=== PATIENT | female | born 1980 | race American Indian/Alaskan Native ===

== ENCOUNTER 2016-09-29 09:36 | Emergency (ER) | payer BC ==
[2016-09-29 09:50] VITALS: BP 121/78
[2016-09-29 10:43] LABS: Bilirubin,Urine NEG (Negative); Blood,Urine NEG (Negative); Ketones,Urine NEG (Negative); Leukocyte Esterase,Urine NEG (Negative); Nitrite,Urine NEG (Negative); Protein,Urine <15 mg/dL mg/dL (Negative); Urobilinogen,Urine < 2.0 mg/dL (<2.0)
[2016-09-29] MEDS ORDERED: FLEXERIL PO ONE (11:16)
[2016-09-29] MEDS ORDERED: NORCO 5/325 PO ONE (11:16)
--- NOTE | 2016-09-29 11:16 | Emergency Department Report ---
ED Back Pain/Injury HPI - General Chief Complaint: Urogenital-Female Stated Complaint: ABD/BACK PAIN/HEADACHE Time Seen by Provider: 09/29/16 11:09 Source: patient, family Mode of arrival: Ambulatory Limitations: No Limitations - History of Present Illness Initial Comments: Patient states that she had lower back pain and flank pain the last month. She states that she had increased urination. Denies any burning or frequency. Denies fevers or chills. Denies any abdominal pain. She is also complaining of pain in her left ear. Pain is 8 out of 10 right lower back on both sides. Denies taking any medication for pain. Pain is achy. She says she works for [employer] and she has a forklift and left heavy boxes. Denies any nausea or vomiting. Denies any history of diabetes or any family history of diabetes. He has been treated in the past for back pain. Denies Any increased thirst. Denies Any loss of bowel or bladder function or numbness or tingling in extremities. MD Complaint: back pain Onset/Timin -: month(s) Similar Symptoms Previously: Yes Place: home Radiation: none Severity: severe Severity scale (0 -10): 8 Quality: aching Consistency: intermittent Improves With: immobilization Worsens With: movement, walking Context: unknown Associated Symptoms: denies: confusion, weakness, chest pain, numbness, difficulty walking, cough, difficulty urinating, diaphoresis, incontinence, fever/chills, constipation, headaches, abdominal pain, loss of appetite, malaise , nausea/vomiting, rash, seizure, shortness of breath, syncope Treatments Prior to Arrival: other (none) - Related Data Previous Rx's Medication Instructions Recorded Last Taken Type Albuterol Sulfate [Ventolin HFA] 2 puff IH Q4H PRN #1 hfa.aer.ad 02/08/13 Rx Cyclobenzaprine HCl [FLEXERIL] 10 mg PO TID #12 tablet 03/19/13 Unknown Rx traMADol [Ultram] 50 mg PO Q4HR PRN #15 tablet 03/19/13 Unknown Rx Cyclobenzaprine [Flexeril] 10 mg PO TID PRN #15 tablet 09/29/16 Unknown Rx Ibuprofen [Motrin] 600 mg PO Q8H PRN #15 tablet 06/18/17 Unknown Rx Allergies Allergy/AdvReac Type Severity Reaction Status Date / Time No Known Allergies Allergy Unverified 02/08/13 12:13 ED Review of Systems ROS: Stated complaint: ABD/BACK PAIN/HEADACHE Other details as noted in HPI Comment: All other systems reviewed and negative Constitutional: denies: chills, fever ENT: denies: ear pain, throat pain, congestion Respiratory: no symptoms reported Cardiovascular: denies: chest pain, palpitations, edema, syncope Gastrointestinal: denies: abdominal pain, nausea, vomiting, diarrhea Genitourinary: frequency. denies: urgency, dysuria, hematuria, discharge Musculoskeletal: back pain. denies: joint swelling, arthralgia, myalgia Skin: denies: rash Neurological: denies: headache, weakness, numbness, paresthesias, confusion, abnormal gait, vertigo ED Past Medical Hx - Past Medical History Previous Medical History?: Yes Hx Asthma: Yes - Surgical History Past Surgical History?: Yes Additional Surgical History: ankle surgery - Family History Family history: hypertension - Social History Smoking Status: Current Some Day Smoker Substance Use Type: Alcohol - Medications Home Medications: Home Medications Medication Instructions Recorded Confirmed Last Taken Type Albuterol Sulfate [Ventolin HFA] 2 puff IH Q4H PRN #1 hfa.aer.ad 02/08/1303/09/13 Rx Cyclobenzaprine HCl [FLEXERIL] 10 mg PO TID #12 tablet 03/19/13 Unknown Rx traMADol [Ultram] 50 mg PO Q4HR PRN #15 tablet 03/19/13 Unknown Rx Cyclobenzaprine [Flexeril] 10 mg PO TID PRN #15 tablet 09/29/16 Unknown Rx Ibuprofen [Motrin] 600 mg PO Q8H PRN #15 tablet 09/29/16 Unknown Rx ED Physical Exam - General Limitations: No Limitations General appearance: alert, in no apparent distress - Head Head exam: Present: atraumatic, normocephalic, normal inspection - Eye Eye exam: Present: normal appearance, PERRL, EOMI Pupils: Present: normal accommodation - ENT ENT exam: Present: normal exam, normal orophraynx, mucous membranes moist, TM's normal bilaterally, normal external ear exam - Neck Neck exam: Present: normal inspection, full ROM. Absent: tenderness, meningismus, lymphadenopathy - Respiratory Respiratory exam: Present: normal lung sounds bilaterally. Absent: respiratory distress, wheezes, rales, rhonchi, stridor, chest wall tenderness - Cardiovascular Cardiovascular Exam: Present: regular rate, normal rhythm, normal heart sounds - GI/Abdominal GI/Abdominal exam: Present: soft, normal bowel sounds. Absent: distended, tenderness, guarding, rebound, rigid - Extremities Exam Extremities exam: Present: normal inspection, full ROM, normal capillary refill. Absent: tenderness, pedal edema, joint swelling, calf tenderness - Back Exam Back exam: Present: normal inspection, full ROM. Absent: tenderness, CVA tenderness (R), CVA tenderness (L), muscle spasm, paraspinal tenderness, vertebral tenderness, rash noted - Expanded Back Exam Expanded Back exam: Absent: saddle anesthesia Back exam: Negative Straight Leg Raising: Left, Right - Neurological Exam Neurological exam: Present: alert, oriented X3, normal gait, reflexes normal. Absent: motor sensory deficit - Expanded Neurological Exam Expanded Neurological exam: Absent: innattentive, memory loss-remote event, memory loss- recent event, ataxia, receptive aphasia, expressive aphasia, total aphasia, tremor Patient oriented to: Present: person, place, time Speech: Present: fluid speech Cranial nerves: EOM's Intact: Normal, Gag Reflex: Normal, Nystagmus: Normal, Facial Sensation: Normal Cerebellar function: Romberg: Normal Upper motor neuron: Pronator Drift: Normal, Sensory Extinction: Normal Sensory exam: Upper Extremity Light Touch: Normal, Upper Extremity Temperature: Normal, UE 2 Point Discrimination: Normal, Lower Extremity Light Touch: Normal, Lower Extremity Temperature: Normal, LE 2 Point Discrimination: Normal Motor strength exam: RUE: 5, LUE: 5, RLE: 5, LLE: 5 DTR: bicep (R): 2+, bicep (L): 2+, tricep (R): 2+, tricep (L): 2+, knee (R): 2+ , knee (L): 2+, ankle (R): 2+, ankle (L): 2+ Best Eye Response (Mayo): (4) open spontaneously Best Motor Response (Wallis): (6) obeys commands Best Verbal Response (Wallis): (5) oriented Wallis Total: 15 - Psychiatric Psychiatric exam: Present: normal affect, normal mood - Skin Skin exam: Present: warm, dry, intact, normal color. Absent: rash ED Course Vital Signs 09/29/16 09:47 Temperature 98.5 F Pulse Rate 75 Respiratory 16 Rate Blood Pressure 121/78 O2 Sat by Pulse 100 Oximetry - Reevaluation(s) Reevaluation #1: 09/29/16 11:42 Patient given Percocet 5/325 2 tablets and Flexeril 10 mg emergency room for back pain ED Medical Decision Making - Lab Data Lab Results 09/29/16 Range/Units 10:18 Urine Color Yellow (Yellow) Urine Turbidity Clear (Clear) Urine pH 5.0 (5.0-7.0) Ur Specific [place] 1.017 (1.003-1.030) Urine Protein <15 mg/dl (Negative) mg/dL Urine Glucose (UA) Neg (Negative) mg/dL Urine Ketones Neg (Negative) mg/dL Urine Blood Neg (Negative) Urine Nitrite Neg (Negative) Urine Bilirubin Neg (Negative) Urine Urobilinogen < 2.0 (<2.0) mg/dL Ur Leukocyte Esterase Neg (Negative) Urine WBC (Auto) 1.0 (0.0-6.0) /HPF Urine RBC (Auto) 2.0 (0.0-6.0) /HPF U Epithel Cells (Auto) 2.0 (0-13.0) /HPF Urine HCG, Qual Negative (Negative) - Medical Decision Making ED Course: Patient was low back pain. She has no CVA tenderness and no vertebral tenderness Back paraspinal tenderness. Patient lifts heavy objects at work so I discussed with her that her urine was normal and she is not but she needs to take a couple days after rest. I also discussed with her that she will need to follow up with orthopedic doctor if she continues to have back pain. She was given Percocet 5/325 2 tablets and Flexeril 10 mg emergency room for pain,'. Discharged with S/O prescription for Flexeril and Motrin. Critical care attestation.: If time is entered above; I have spent that time in minutes in the direct care of this critically ill patient, excluding procedure time. ED Disposition Clinical Impression: Lower back pain Qualifiers: Chronicity: acute Back pain laterality: bilateral Sciatica presence: without sciatica Qualified Code(s): M54.5 - Low back pain Lumbar back sprain Qualifiers: Encounter type: initial encounter Qualified Code(s): S33.5XXA - Sprain of ligaments of lumbar spine, initial encounter Disposition: TO HOME OR SELFCARE Is pt being admited?: No Does the pt Need Aspirin: No Condition: Stable Instructions: Low Back Strain (ED), Core Strengthening Exercises (GEN) Additional Instructions: Please do not take Flexeril while driving or operating heavy machinery as medication causes drowsiness Follow-up with orthopedic doctor if he continues to have back pain. Prescriptions: Cyclobenzaprine [Flexeril] 10 mg PO TID PRN #15 tablet PRN Reason: Muscle Spasm Ibuprofen [Motrin] 600 mg PO Q8H PRN #15 tablet PRN Reason: Pain Referrals: PRIMARY CARE, [Primary Care Provider] - 3-5 Days CRYS SERVIN MD [Staff Physician] - 3-5 Days Forms: Work/School Release Form(ED)
== END 2016-09-29 12:00 | disposition home or self-care (01) ==
LOC: ED 09:36
DX: S33.5XXA Sprain of ligaments of lumbar spine, initial encounter (principal); I10 Essential (primary) hypertension; F17.210 Nicotine dependence, cigarettes, uncomplicated; J45.909 Unspecified asthma, uncomplicated; Z98.890 Other specified postprocedural states; X50.9XXA Other and unspecified overexertion or strenuous movements or postures, initial encounter; Y93.9 Activity, unspecified; Y92.89 Other specified places as the place of occurrence of the external cause; Y99.8 Other external cause status
CPT/HCPCS: 81001; 81025; 99283

== ENCOUNTER 2017-05-03 09:44 | Emergency (ER) | payer BC ==
--- NOTE | 2017-05-03 11:38 | XRay Report ---
ROUTINE CHEST, TWO VIEWS: HISTORY: Left chest pain. The trachea, heart, mediastinal contour, lung rich and bony thorax are unremarkable. IMPRESSION: Unremarkable chest x-ray.
[2017-05-03 11:39] LABS: BUN/Creatinine Ratio 16; Blood Urea Nitrogen 11 mg/dL (7-17); Calcium 9.2 mg/dL (8.4-10.2); Hemolysis Index 5
[2017-05-03 11:47] LABS: Basophils % (Auto) 0.4 % (0.0-1.8); Eosinophils % (Auto) 0.8 % (0.0-4.3); Hematocrit 38.4 % (30.3-42.9); Hemoglobin 12.6 gm/dl (10.1-14.3); Lymphocytes # (Auto) 1.6 K/mm3 (1.2-5.4); Lymphocytes % (Auto) 30.2 % (13.4-35.0); Mean Corpuscular HGB Conc 33 % (30-34); Mean Corpuscular Hemoglobin 28 pg (28-32); Mean Corpuscular Volume 84 fl (79-97); Monocytes # (Auto) 0.5 K/mm3 (0.0-0.8); Platelet Count 307 K/mm3 (140-440); Red Blood Count 4.57 M/mm3 (3.65-5.03); Red Cell Distribution Width 17.7 % (13.2-15.2)
[2017-05-03 18:53] VITALS: BP 120/87
[2017-05-03] MEDS ORDERED: MORPHINE IV ONE (20:10)
--- NOTE | 2017-05-03 20:12 | Emergency Department Report ---
ED Chest Pain HPI - General Chief Complaint: Headache Stated Complaint: FRITZ/CP Time Seen by Provider: 05/03/17 20:01 Source: patient Mode of arrival: Ambulatory Limitations: No Limitations - History of Present Illness Initial Comments: This is a 36-year-old female presents to the emergency department from home, driven in by her brother, with complaint of pain to the left side of the chest below the breast that radiates around her side into the back. This woke her from sleep at about 3 AM and is improved but still present. She did not take anything for her symptoms prior to presentation. She denies any shortness of breath, fever, nausea, vomiting or diaphoresis. Patient also complains of a generalized headache that has resolved since presentation. She denies any visual change, slurred speech or any neurological deficits. She has a past medical history of asthma. She is a occasional tobacco smoker. She denies any illicit drug use or alcohol abuse. She does not have a primary care physician. She denies any family history of early cardiac events or . No recent travel or sick contacts at home. Severity scale (0 -10): 9 - Related Data Previous Rx's Medication Instructions Recorded Last Taken Type Albuterol Sulfate [Ventolin HFA] 2 puff IH Q4H PRN #1 hfa.aer.ad 02/08/13 Rx Cyclobenzaprine HCl [FLEXERIL] 10 mg PO TID #12 tablet 03/19/13 Unknown Rx traMADol [Ultram] 50 mg PO Q4HR PRN #15 tablet 03/19/13 Unknown Rx Cyclobenzaprine [Flexeril] 10 mg PO TID PRN #15 tablet 09/29/16 Unknown Rx Ibuprofen [Motrin] 600 mg PO Q8H PRN #15 tablet 09/29/16 Unknown Rx Allergies Allergy/AdvReac Type Severity Reaction Status Date / Time No Known Allergies Allergy Verified 05/03/17 21:14 Heart Score - HEART Score History: Slightly suspicious EKG: Normal Age: < 45 Risk factors: 1-2 risk factors Troponin: < normal limit HEART Score: 1 - Critical Actions Critical Actions: 0-3 pts:0.9-1.7%risk of adverse cardiac event.Candidate for discharge ED Review of Systems ROS: Stated complaint: FRITZ/CP Other details as noted in HPI Comment: All other systems reviewed and negative Constitutional: denies: chills, fever Eyes: denies: eye pain, eye discharge, vision change ENT: denies: ear pain, throat pain Respiratory: denies: cough, shortness of breath, wheezing Cardiovascular: chest pain. denies: palpitations Gastrointestinal: denies: abdominal pain, nausea, diarrhea Genitourinary: denies: urgency, dysuria, discharge Musculoskeletal: back pain. denies: joint swelling Skin: denies: rash, lesions Neurological: headache. denies: numbness ED Past Medical Hx - Past Medical History Previous Medical History?: Yes Hx Asthma: Yes - Surgical History Past Surgical History?: Yes Additional Surgical History: ankle surgery - Social History Smoking Status: Former Smoker Substance Use Type: Alcohol, Marijuana, Non Opiate Pain - Medications Home Medications: Home Medications Medication Instructions Recorded Confirmed Last Taken Type Albuterol Sulfate [Ventolin HFA] 2 puff IH Q4H PRN #1 hfa.aer.ad 02/08/1303/09/13 Rx Cyclobenzaprine HCl [FLEXERIL] 10 mg PO TID #12 tablet 03/19/13 Unknown Rx traMADol [Ultram] 50 mg PO Q4HR PRN #15 tablet 03/19/13 Unknown Rx Cyclobenzaprine [Flexeril] 10 mg PO TID PRN #15 tablet 09/29/16 Unknown Rx Ibuprofen [Motrin] 600 mg PO Q8H PRN #15 tablet 09/29/16 Unknown Rx ED Physical Exam - General Limitations: No Limitations - Other Other exam information: GENERAL: The patient is well-developed well-nourished. HENT: Normocephalic. Atraumatic. Patient has moist mucous membranes. EYES: Extraocular motions are intact. Pupils equal reactive to light bilaterally. No nystagmus. NECK: Supple. Trachea is midline. CHEST/LUNGS: Clear to auscultation. There is no respiratory distress noted. HEART/CARDIOVASCULAR: Regular. There is no tachycardia. There is no murmur. ABDOMEN: Abdomen is soft, nontender. Patient has normal bowel sounds. There is no abdominal distention. SKIN: Skin is warm and dry. NEURO: The patient is awake, alert, and oriented. The patient is cooperative. The patient has no focal neurologic deficits. The patient has normal speech. Cranial nerves II through XII grossly intact. MUSCULOSKELETAL: There is no tenderness or deformity. There is no limitation range of motion. There is no evidence of acute injury. ED Course Vital Signs 05/03/17 05/03/17 05/03/17 10:55 14:14 17:55 Temperature 98.1 F 98.2 F Pulse Rate 70 70 73 Respiratory 16 16 14 Rate Blood Pressure 111/63 Blood Pressure 118/57 122/87 [Right] O2 Sat by Pulse 100 100 100 Oximetry 05/03/17 05/03/17 18:43 18:54 Temperature 98.2 F Pulse Rate 67 Respiratory 17 11 L Rate Blood Pressure Blood Pressure 120/87 [Right] O2 Sat by Pulse 100 100 Oximetry DENYS score - Denys Score Age > 65: (0) No Aspirin use within the Past 7 Days: (0) No 3 or more CAD Risk Factors: (0) No 2 or more Angina events in past 24 hrs: (0) No Known CAD with more than 50% Stenosis: (0) No Elevated Cardiac Markers: (0) No ST Deviation Greater than 0.5mm: (0) No DENYS Score: 0 ED Medical Decision Making - Lab Data Result diagrams: 05/03/17 Unknown 05/03/17 10:58 - EKG Data -: EKG Interpreted by Me EKG shows normal: sinus rhythm, axis, intervals, QRS complexes, ST-T waves Rate: normal - EKG Data When compared to previous EKG there are: previous EKG unavailable Interpretation: normal EKG - Radiology Data Radiology results: image reviewed interpreted by me: Chest x-ray does not show any acute process. There are no pleural effusions, obvious pneumonia and there is no pneumothorax. - Medical Decision Making The patient presented with some chest pain and back pain since late last night/ early this morning. EKG does not show any signs of ST elevation WI, ischemia or dysrhythmia. So far she has negative troponins 2 and a negative d-dimer. Chest x-ray is unremarkable. She is low on the heart score and a DENYS score of 0. She would be perked negative anyways but has a negative d-dimer. She was given a little bit of pain medication and upon reevaluation she is feeling improved. Vital signs stable throughout ED course. She does not have any focal , motor or sensory deficits in her cranial nerves are intact. She appears safe for discharge home at this time and has been given referrals for both primary care and cardiology. She'll return to the ER with any worsening of her symptoms or any acute distress. - Differential Diagnosis WI, PE, costochondritis, GERD Critical Care Time: No Critical care attestation.: If time is entered above; I have spent that time in minutes in the direct care of this critically ill patient, excluding procedure time. ED Disposition Clinical Impression: Chest pain Qualifiers: Chest pain type: unspecified Qualified Code(s): R07.9 - Chest pain, unspecified Disposition: TO HOME OR SELFCARE Is pt being admited?: No Condition: Stable Instructions: Chest Pain (ED), Costochondritis (ED) Additional Instructions: Please follow up with a primary care physician in the next few days if possible. I have given you a referral for a local printed circuit layout taper, Dr. Leblanc, to follow up regarding your chest pain. Return to the emergency Department with any worsening of your symptoms or any acute distress. Referrals: VAL TOSCANO MD [Staff Physician] - 3-5 Days DARVIN LEBLANC MD [Staff Physician] - 3-5 Days [facility] [Outside] - 3-5 Days Time of Disposition: 22:16
[2017-05-03] MEDS ORDERED: MORPHINE ONE (21:04)
== END 2017-05-04 01:28 | disposition home or self-care (01) ==
LOC: ED 09:44
DX: R07.9 Chest pain, unspecified (principal); J45.909 Unspecified asthma, uncomplicated; Z87.891 Personal history of nicotine dependence; F12.10 Cannabis abuse, uncomplicated
CPT/HCPCS: 36415; 71046; 80048; 84484; 84703; 85025; 85379; 93005; 93010; 96374; 99284; J2270

== ENCOUNTER 2019-04-07 13:33 | Emergency (ER) | payer BC | END 2019-04-07 19:15 | disposition home or self-care (01) | LOC: ED 13:33 | CPT/HCPCS: 71046 ==